=== PATIENT | female | born 1975 | race Caucasian/White ===

== ENCOUNTER → 2023-09-21 | Outpatient (REF) | payer OTHER ==
[~2023-09-21] MED LIST: ALENDRONATE SOD70 MG PO; AMITIZA24 MCG PO; AMITRIPTYLINE H50 MG PO; CREON DR 24,001 EACH PO; CYTOTEC200 MCG PO; DEXILANT60 MG PO; DICYCLOMINE HCL20 MG PO; LIBRAX CAPSULE1 EACH PO; LINZESS PO; METOPROLOL TART25 MG PO; MIRALAX17 GM PO; NORCO 10-325 T1 EACH PO; PHENERGAN SUPP25 MG PO; RELPAX40 MG PO; TOPAMAX200 MG PO; ZONISAMIDE100 MG PO
== END ==
LOC: MAMMO 09:33
PROVIDERS: ATTEND Family Medicine
DX: R92.8 Other abnormal and inconclusive findings on diagnostic imaging of breast (principal)

== ENCOUNTER → 2024-10-10 | Outpatient (REF) | payer OTHER | LOC: MAMMO 08:52 | PROVIDERS: ATTEND Family Medicine | DX: Z12.31 Encounter for screening mammogram for malignant neoplasm of breast (principal) | CPT/HCPCS: 77067 ==